=== PATIENT | female | born 1990 | race Caucasian/White ===

== ENCOUNTER 2018-09-07 08:47 | Emergency (ER) | payer MEDICAID ==
[~2018-09-07] VITALS: Ht 167.6 cm; Wt 55.0 kg
[2018-09-07 09:19] VITALS: BP 118/66
[2018-09-07] MEDS ORDERED: HYDROcodone/APAP 5/325 TABLET PO ONE (10:30)
[2018-09-07] MEDS ORDERED: HYDROcodone/APAP 5/325 TABLET ONE (10:42)
== END 2018-09-07 11:29 | disposition home or self-care (01) ==
LOC: ED 11:25
DX: S62.316A Displaced fracture of base of fifth metacarpal bone, right hand, initial encounter for closed fracture (principal); W00.0XXA Fall on same level due to ice and snow, initial encounter; Y93.89 Activity, other specified; Y92.009 Unspecified place in unspecified non-institutional (private) residence as the place of occurrence of the external cause; Y99.8 Other external cause status
CPT/HCPCS: 29125; 99283

== ENCOUNTER 2018-09-14 07:04 | Day surgery (SDC) | payer MEDICAID ==
[~2018-09-14] VITALS: Ht 167.6 cm; Wt 55.6 kg
[2018-09-14] MEDS ORDERED: ONDANSETRON ODT 8 MG PO STA (07:40)
[2018-09-14] MEDS ORDERED: GABAPENTIN 300 MG CAPSULE PO STA (07:40)
[2018-09-14] MEDS ORDERED: ACETAMINOPHEN 500 MG TABLET PO STA (07:40)
[2018-09-14 07:41] VITALS: BP 110/70
[2018-09-14] MEDS ORDERED: LACTATED RINGERS 1,000 ML IV SCH (07:41)
[2018-09-14] MEDS ORDERED: IBUP-1484 PO (07:46)
[2018-09-14] MEDS ORDERED: HYDR-3240 PO (07:46)
[2018-09-14] MEDS ORDERED: LIDOCAINE-MPF 1%, 2ML ONE (07:53)
[2018-09-14 07:55] LABS: HCG UR SG 1.023 (1.003-1.030)
[2018-09-14] MEDS ORDERED: LIDOCAINE-MPF 1%, 2ML INFIL ONE (08:00)
[2018-09-14] MEDS ORDERED: FENTANYL PF 100 MCG/2ML ONE ×3 (09:44→11:29)
[2018-09-14] MEDS ORDERED: MIDAZOLAM 1 MG/ML, 2ML ONE (09:48)
[2018-09-14] MEDS ORDERED: CEFAZOLIN 1,000 MG ONE (10:00)
[2018-09-14] MEDS ORDERED: DEXAMETHASONE 4 MG/ML, 1ML ONE (10:00)
[2018-09-14] MEDS ORDERED: PROPOFOL 10 MG/ML, 20ML ONE (10:00)
[2018-09-14] MEDS ORDERED: BUPIVACAINE/PF-EPI 0.5% 1:200K ONE (10:15)
[2018-09-14] MEDS ORDERED: ONDANSETRON 2MG/ML, 2ML IV PRN (10:30)
[2018-09-14] MEDS ORDERED: LORazepam 2 MG/ML, 1ML IVPush PRN (10:30)
[2018-09-14] MEDS ORDERED: HYDROmorphone 2 MG/ML, 1ML IVPush PRN (10:30)
[2018-09-14] MEDS ORDERED: METOCLOPRAMIDE 5 MG/ML, 2ML IV PRN (10:30)
[2018-09-14] MEDS ORDERED: MEPERIDINE/PF 25MG/ML,1ML ONE (11:24)
[2018-09-14] MEDS: MEPERIDINE/PF 25MG/0.5ML IVPush PRN ×2 (11:26→11:33)
[2018-09-14] MEDS: FENTANYL PF 100 MCG/2ML IV PRN ×3 (11:30→11:53)
[2018-09-14] MEDS ORDERED: ONDANSETRON 2MG/ML, 2ML ONE (11:43)
[2018-09-14] MEDS ORDERED: METOCLOPRAMIDE 5 MG/ML, 2ML ONE (11:43)
[2018-09-14] MEDS ORDERED: OXYcodone 5 MG/5 ML ORAL.SOL UDC ONE (11:55)
[2018-09-14] MEDS: OXYcodone 5 MG/5 ML ORAL.SOL UDC PO PRN ×2 (11:57→13:00)
[2018-09-14] MEDS ORDERED: KETOROLAC 30 MG/1 ML IVPush PRN (13:00)
== END 2018-09-14 13:40 | disposition home or self-care (01) ==
LOC: OUT 07:04
PROVIDERS: ATTEND Orthopaedic Surgery
DX: S62.326A Displaced fracture of shaft of fifth metacarpal bone, right hand, initial encounter for closed fracture (principal); X58.XXXA Exposure to other specified factors, initial encounter; Y93.89 Activity, other specified; Y92.89 Other specified places as the place of occurrence of the external cause; Y99.8 Other external cause status; Z88.1 Allergy status to other antibiotic agents; Z88.0 Allergy status to penicillin; Z88.8 Allergy status to other drugs, medicaments and biological substances
CPT/HCPCS: 26615; 73140; 76000; 81025; C1713; J0690; J1100; J1885; J2175; J2250; J2405; J2704; J3010; J7120; Q0162

== ENCOUNTER 2018-09-16 17:07 | Emergency (ER) | payer SELFPAY ==
[~2018-09-16] VITALS: Ht 165.1 cm; Wt 55.5 kg
[~2018-09-16 17:07] MED LIST: HYDR-3240 PO; IBUP-1484 PO
[2018-09-16] MEDS ORDERED: ONDANSETRON 2MG/ML, 2ML ONE (18:45)
[2018-09-16] MEDS ORDERED: MORPHINE SULFATE 4 MG/ML, 1ML ONE ×2 (18:46→19:28)
--- NOTE | 2018-09-16 18:50 | NUR ---
COTTON WRAP FOR THE SPLINT ON THE R ARM CUT AND SPLINT REMOVED BY ERP
[2018-09-16] MEDS: MORPHINE SULFATE 4 MG/ML, 1ML IVPush PRN ×2 (18:51→19:30)
[2018-09-16] MEDS ORDERED: ONDANSETRON 2MG/ML, 2ML IVPush ONE (19:00)
--- NOTE | 2018-09-16 19:04 | NUR ---
RECEIVED BS REPORT FROM KATINA JARAMILLO. HE ESTABLISHED IV AND THIS RN MEDICATED PT PER OCT. LABS HAVE BEEN DRWAN AND X-RAYS COMPLETED. CONTINUOUS PULSE OX IN PLACE. CALL LIGHT IN REACH. 2 PILLOWS PROVIDED. WARM BLANKETS PROVIDED. PT. 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 ALL SAFETY MEASURES OBSERVED.
--- NOTE | 2018-09-16 19:12 | NUR ---
AT THIS TIME PT. REPORTS PAIN IS DOWN TO 8/10; PT. DECLINED OFFER OF 2ND DOSE OF MORPHINE. PT. CALM AND COOPERATIVE AT THIS TIME. ICE IN USE ON RIGHT HAND. ALL SAFETY MEASURES MAINTAINED. PT. VERBALIZED SHE WILL CALL FOR MORE PAIN MEDS IF NEEDED.
[2018-09-16 19:14] LABS: BASOPHILS # (AUTO) 0.07 x10^3/uL (0-0.1); BASOPHILS % (AUTO) 1 % (0-1); EOSINOPHILS # (AUTO) 0.62 x10^3/uL (0-0.4); EOSINOPHILS % (AUTO) 6 % (1-7); LYMPHOCYTES % (AUTO) 29 % (22-44); MD NO; MEAN CORPUSCULAR HEMOGLOBIN 29.8 pg (27.0-34.8); MEAN CORPUSCULAR HGB CONC 33.7 g/dL (32.4-35.8); MEAN CORPUSCULAR VOLUME 88.3 fL (80-100); MEAN PLATELET VOLUME 10.1 fL (7.4-10.4); MONOCYTES # (AUTO) 0.78 x10^3/uL (0.2-0.8); MONOCYTES % (AUTO) 7 % (2-9); NEUTROPHILS # (AUTO) 6.18 x10^3/uL (1.8-6.8); NEUTROPHILS % (AUTO) 58 % (42-75); PLATELET COUNT 214 x10^3/uL (130-400); RED BLOOD COUNT 4.49 x10^6/uL (3.82-5.3); RED CELL DISTRIBUTION WIDTH 13.3 % (9.6-15.2)
[2018-09-16 19:18] LABS: ALBUMIN 3.7 g/dL (3.4-5.0); ANION GAP 7 mmol/L (5-15); C-REACTIVE PROTEIN, QUANT 0.03 mg/dL (0.02-0.49); CALCIUM 8.2 mg/dL (8.5-10.1); CHLORIDE 111 mmol/L (98-107); CREATININE 0.66 mg/dL (0.55-1.02)
[2018-09-16 19:24] LABS: HCT (SEDRATE) 39.6 % (34.6-47.8)
--- NOTE | 2018-09-16 20:16 | NUR ---
CHART UP FOR RECHECK BY MALENA.
--- NOTE | 2018-09-16 20:26 | NUR ---
PT. EDUCATED ON WHY ICE CAN'T BE LEFT ON HAND FOR TOO LONG OF A PERIOD AND WHY ICE NEEDS TO BE USED IN 20 MIN OR LESS PERIORS AND HAND ALLOWED TO RE-WARM. PT. VERBALIZED UNDERSTANDING OF THIS. BOYFRIEND ALSO AT BS. DR. KELLER IN TO DISCUSS POC WITH PT. ANOTHER WARM BLANKET PROVIDED PER REQUEST. PT. REPORST PAIN IS DOWN TO 6/10 IN RIGHT HAND. DENIES OTHER NEEDS. CALL LIGHT IN REACH. ALL SAFETY MEASURES OBSERVED.
--- NOTE | 2018-09-16 20:40 | NUR ---
TONY AT BS FOR SPLINT.
[2018-09-16 20:58] VITALS: BP 99/55
== END 2018-09-16 21:10 | disposition home or self-care (01) ==
LOC: ED 18:43
DX: M25.531 Pain in right wrist (principal); L03.113 Cellulitis of right upper limb
CPT/HCPCS: 29125; 36415; 73110; 80048; 82040; 85025; 85651; 86140; 96374; 96375; 96376; 99284; J2405